=== PATIENT | male | born 1930 | race Caucasian/White ===

== ENCOUNTER 2021-06-19 08:29 | Inpatient (IN) | payer MEDICARE, OTHER ==
[~2021-06-19] VITALS: Ht 167.6 cm; Wt 71.4 kg
[2021-06-19 09:35] LABS: BASOPHIL 0.3 % (0-2); EOSINOPHIL 0.9 % (0-7); HCT 43.8 % (42.0-52.0); HGB 14.6 g/dl (13.2-18.0); LYMPHOCYTE 9.4 % (15-48); MCH 33.6 pg (25.0-31.0); MCHC 33.3 g/dL (32.0-36.0); MCV 100.9 fL (78.0-100.0); MPV 9.5 fL (6.0-9.5); NEUTROPHIL 79.1 % (41-80); NRBC 0; PLT 137 K/uL (150-400); RBC 4.34 M/uL (4.70-6.00); RDW 13.9 % (11.5-14.0); WBC 11.8 K/uL (4.0-10.5)
[2021-06-19 10:04] LABS: ALBUMIN 2.5 g/dL (3.4-5.0); BUN/CREAT RATIO (CALC) 17.1 RATIO; CREATININE 1.4 mg/dL (0.67-1.17); GLOBULIN (CALCULATION) 4.8 g/dL; POTASSIUM 4.4 mmol/L (3.5-5.1); TOTAL PROTEIN 7.3 g/dL (6.4-8.2)
[2021-06-19 11:46] LABS: BILIRUBIN NEGATIVE (NEGATIVE); BLOOD 1+ Ery/uL (NEGATIVE); COLOR YELLOW (YELLOW); GLUCOSE (U) NORMAL (NORMAL); LEUKOCYTES 3+ Leu/uL (NEGATIVE); NITRITE POSITIVE (NEGATIVE); PROTEIN TRACE (LOW) mg/dL (NEGATIVE)
[2021-06-19 11:48] LABS: CLARITY CLOUDY (CLEAR)
[2021-06-19 12:43] LABS: URINARY WBC TNTC
[2021-06-19 12:44] LABS: BACTERIA 3+
[2021-06-19] MEDS ORDERED: ASPIRIN EC81 MG PO (14:31)
[2021-06-19] MEDS ORDERED: LIPITOR40 MG PO (14:31)
[2021-06-19] MEDS ORDERED: PLAVIX75 MG PO (14:32)
[2021-06-19] MEDS ORDERED: NAMENDA 10MG TA10 MG PO (14:32)
[2021-06-19] MEDS ORDERED: VITAMIN D325 MC2 PO (14:32)
[2021-06-19] MEDS ORDERED: METOPROLOL SUCC25 MG PO (14:33)
[2021-06-19] MEDS ORDERED: MULTI-VITAMIN1 EACH PO (14:33)
[2021-06-19] MEDS ORDERED: ENSURE PLUS237 ML PO (14:34)
[2021-06-19] MEDS ORDERED: [UNRECOGNIZED DRUG - OTHER] OS (14:35)
[2021-06-19] MEDS ORDERED: PROTONIX 40MG T40 MG PO (14:35)
[2021-06-19] MEDS ORDERED: SODIUM CHL OS (14:35)
[2021-06-20 06:55] LABS: BASOPHIL 0.5 % (0-2); HCT 36.8 % (42.0-52.0); LYMPHOCYTE 17.7 % (15-48); MCH 32.9 pg (25.0-31.0); MCHC 32.6 g/dL (32.0-36.0); MCV 100.8 fL (78.0-100.0); MONOCYTE 13.7 % (0-12); MPV 9.9 fL (6.0-9.5); NEUTROPHIL 64.7 % (41-80); NRBC 0; PLT 132 K/uL (150-400); RBC 3.65 M/uL (4.70-6.00); RDW 13.9 % (11.5-14.0); WBC 8.6 K/uL (4.0-10.5)
[2021-06-20 08:34] LABS: BILIRUBIN - TOTAL 0.9 mg/dL (0.2-1.0); BUN/CREAT RATIO (CALC) 17.7 RATIO; CREATININE 1.24 mg/dL (0.67-1.17); POTASSIUM 3.9 mmol/L (3.5-5.1)
--- NOTE | 2021-06-20 12:41 | NUR ---
INFORMED BY CASANDRA RIVERA THAT PATIENT HAD FELL IN BATHROOM. TAKEN TO BR 2 ASSIST WITH WALKER, SAT ON TOILET AND AID XAVIER HOLDING DOOR OPEN TO PEEK IN NOTICED PATIENT GETTING UP, SHE WAS UNABLE TO GRAB HIM BEFORE FALL, PATIENT STATED "LOST BALANCE" XAVIER STATED HE HIT BACK OF HEAD. PATIENT ASSESSED AND NO NEW INJURY NOTED, NO LUMP OR SWELLING TO BACK OF HEAD AT THIS TIME, PATIENT DENIED AT THAT TIME ANY PAIN AND STILL DENIES. THOROUGHLY ASSESSED BY DIEGO SCHMID. ORDERS FOR SCANS. B\\P-100/51, P-96, O2 SAT 97% RA. LOOKED THROUGH MEDS AND ASKED PHARMACY TO REVIEW, PLAVIX AND ASA ALREADY ON HOLD, SLEEPING PILL GIVEN LAST NIGHT HAD ALREADY BEEN D/C AND MELATONIN IN IT'S PLACE, PRACTITIONER INFORMED OF PHARMACY REC [facility]. DAUGHTER AT BEDSIDE AND IS AWARE
[2021-06-21 07:14] LABS: BUN/CREAT RATIO (CALC) 17.4 RATIO; CREATININE 1.21 mg/dL (0.67-1.17); POTASSIUM 4.5 mmol/L (3.5-5.1)
[2021-06-21 08:20] LABS: BASOPHIL 0.5 % (0-2); EOSINOPHIL 3.2 % (0-7); HCT 36.8 % (42.0-52.0); HGB 11.9 g/dl (13.2-18.0); LYMPHOCYTE 14.3 % (15-48); MCH 33.5 pg (25.0-31.0); MCHC 32.3 g/dL (32.0-36.0); MCV 103.7 fL (78.0-100.0); MPV 10.1 fL (6.0-9.5); NEUTROPHIL 70.5 % (41-80); NRBC 0.2; PLT 126 K/uL (150-400); RBC 3.55 M/uL (4.70-6.00); RDW 14.3 % (11.5-14.0); WBC 8.7 K/uL (4.0-10.5)
--- NOTE | 2021-06-21 15:01 | NUR ---
06/21/21 Mr. Cueva lives alone. He has 24 hour care through [facility] and family members. He has a hospital bed, rollator, s. chair, 3in1 and handicapped accessible bathroom. [facility] to [facility]; MD and nursing services. [facility] is current and have been notified of admission. - Please monitor for 02 needs.
[2021-06-22 06:41] LABS: BASOPHIL 0.4 % (0-2); EOSINOPHIL 1.7 % (0-7); HCT 35.5 % (42.0-52.0); HGB 11.4 g/dl (13.2-18.0); LYMPHOCYTE 11.3 % (15-48); MCH 33.2 pg (25.0-31.0); MCHC 32.1 g/dL (32.0-36.0); MCV 103.5 fL (78.0-100.0); MONOCYTE 12.6 % (0-12); NEUTROPHIL 73.4 % (41-80); NRBC 0; PLT 104 K/uL (150-400); RBC 3.43 M/uL (4.70-6.00); RDW 14.5 % (11.5-14.0); WBC 9.8 K/uL (4.0-10.5)
[2021-06-22 07:03] LABS: BUN/CREAT RATIO (CALC) 18.6 RATIO; CREATININE 1.18 mg/dL (0.67-1.17); POTASSIUM 4.7 mmol/L (3.5-5.1)
[2021-06-23 06:17] LABS: BASOPHIL 0.3 % (0-2); EOSINOPHIL 0.5 % (0-7); HCT 36.2 % (42.0-52.0); HGB 11.9 g/dl (13.2-18.0); LYMPHOCYTE 10.4 % (15-48); MCH 33.5 pg (25.0-31.0); MCHC 32.9 g/dL (32.0-36.0); MONOCYTE 10.8 % (0-12); MPV 9.9 fL (6.0-9.5); NEUTROPHIL 77.5 % (41-80); NRBC 0; PLT 120 K/uL (150-400); RBC 3.55 M/uL (4.70-6.00); RDW 14.5 % (11.5-14.0); WBC 9.6 K/uL (4.0-10.5)
[2021-06-23 06:39] LABS: IRON % SATURATION 17.3 %SAT (20-50)
[2021-06-23 07:22] LABS: ALBUMIN 1.9 g/dL (3.4-5.0); BILIRUBIN - TOTAL 0.7 mg/dL (0.2-1.0); BUN/CREAT RATIO (CALC) 18.9 RATIO; CREATININE 1.11 mg/dL (0.67-1.17); FOLIC ACID (SERUM) 24.9 ng/mL (8.6-58.9); GLOBULIN (CALCULATION) 4.1 g/dL; MAGNESIUM 1.8 mg/dL (1.8-2.4); POTASSIUM 4.2 mmol/L (3.5-5.1)
--- NOTE | 2021-06-24 05:06 | NUR ---
0300 06/24/21 PATIENT HAS NOT HAD BM SINCE 06/19/21 PATIENT STOMACH FIRM AND DISTENDED, SLIGHLY TENDER ON PALPATION. MD NOTIFED AND 2 ENEMAS GIVEN. NO OUTPUT RECCORDED.
[2021-06-25 06:33] LABS: BASOPHIL 0.5 % (0-2); EOSINOPHIL 3.5 % (0-7); HCT 39.1 % (42.0-52.0); HGB 12.6 g/dl (13.2-18.0); LYMPHOCYTE 12.4 % (15-48); MCH 33.3 pg (25.0-31.0); MCHC 32.2 g/dL (32.0-36.0); MCV 103.4 fL (78.0-100.0); MONOCYTE 12.3 % (0-12); MPV 9.7 fL (6.0-9.5); NEUTROPHIL 70.6 % (41-80); NRBC 0; PLT 109 K/uL (150-400); RBC 3.78 M/uL (4.70-6.00); RDW 14.7 % (11.5-14.0); WBC 8.2 K/uL (4.0-10.5)
[2021-06-25 07:03] LABS: BILIRUBIN - TOTAL 0.7 mg/dL (0.2-1.0); GLOBULIN (CALCULATION) 4.2 g/dL; MAGNESIUM 2.1 mg/dL (1.8-2.4); PHOSPHORUS 2.2 mg/dL (2.6-4.7); POTASSIUM 4.3 mmol/L (3.5-5.1); TOTAL PROTEIN 6.2 g/dL (6.4-8.2)
--- NOTE | 2021-06-26 13:35 | NUR ---
06/26/21 Silvia Galicia dtr / KAY has requested SNF placement. A referral was faxed to [facility] per her choice.
--- NOTE | 2021-06-27 10:36 | NUR ---
06/27 [facility] accepted patient for admission today. Family will transport. A new COVID test is required. Please send a signed H&P with DS. Report given to
[2021-06-27] MEDS ORDERED: MELATONIN5 M2 PO (11:46)
[2021-06-27] MEDS ORDERED: MIRALAX17 GM PO (11:46)
[2021-06-27] MEDS ORDERED: TRAMADOL HCL50 MG PO (11:46)
== END 2021-06-27 15:10 | DRG 157 ==
LOC: FER 08:29 → FMS 12:11
PROVIDERS: Emergency Medicine; Nurse Practitioner; ADMIT Internal Medicine
DX: S02.40CA Maxillary fracture, right side, initial encounter for closed fracture (principal); G93.41 Metabolic encephalopathy; S32.019A Unspecified fracture of first lumbar vertebra, initial encounter for closed fracture; N30.01 Acute cystitis with hematuria; R78.81 Bacteremia; I95.1 Orthostatic hypotension; B96.20 Unspecified Escherichia coli [E. coli] as the cause of diseases classified elsewhere; S01.511A Laceration without foreign body of lip, initial encounter; S61.411A Laceration without foreign body of right hand, initial encounter; S40.011A Contusion of right shoulder, initial encounter; F07.81 Postconcussional syndrome; S01.81XA Laceration without foreign body of other part of head, initial encounter; S61.511A Laceration without foreign body of right wrist, initial encounter; Z20.822 Contact with and (suspected) exposure to COVID-19; W01.198A Fall on same level from slipping, tripping and stumbling with subsequent striking against other object, initial encounter; E78.5 Hyperlipidemia, unspecified; W19.XXXA Unspecified fall, initial encounter; Y92.231 Patient bathroom in hospital as the place of occurrence of the external cause; G30.9 Alzheimer's disease, unspecified; F02.80 Dementia in other diseases classified elsewhere, unspecified severity, without behavioral disturbance, psychotic disturbance, mood disturbance, and anxiety; I25.10 Atherosclerotic heart disease of native coronary artery without angina pectoris; K21.9 Gastro-esophageal reflux disease without esophagitis; I48.91 Unspecified atrial fibrillation; Z79.82 Long term (current) use of aspirin; Z90.49 Acquired absence of other specified parts of digestive tract; Z79.02 Long term (current) use of antithrombotics/antiplatelets; Z79.899 Other long term (current) drug therapy; Z95.2 Presence of prosthetic heart valve; Z87.891 Personal history of nicotine dependence; Z95.5 Presence of coronary angioplasty implant and graft
CPT/HCPCS: 36415; 70450; 70486; 71045; 72125; 72128; 72131; 72148; 72170; 73120; 80048; 80053; 81001; 82607; 82746; 83540; 83550; 83735; 83880; 84100; 84145; 84484; 85025; 87040; 87076; 87077; 87088; 87186; 92526; 93005; 94640; 97162; 97166; 97530-GP; 97535; G0378; J0696; J1170; J1650; J2001; J2916; J7030; J7040; U0002